=== PATIENT | male | born 1985 | race Two or more races ===

== ENCOUNTER 2024-03-16 09:40 | Emergency (ER) | payer OTHER ==
[~2024-03-16] VITALS: Ht 180.3 cm; Wt 154.4 kg
[2024-03-16 10:43] VITALS: BP 146/87; PULSE 91; RESP 20; TEMP 98; O2SAT 95
[2024-03-16] MEDS ORDERED: MELO15TA29 PO (11:16)
== END 2024-03-16 12:20 | disposition home or self-care (01) ==
LOC: ER 09:40
DX: M77.32 Calcaneal spur, left foot (principal); Z79.899 Other long term (current) drug therapy
CPT/HCPCS: 73610